=== PATIENT | female | born 1995 | race Caucasian/White ===

== ENCOUNTER 2019-08-31 09:24 | Emergency (ER) | payer SELFPAY ==
[~2019-08-31] VITALS: Ht 162.6 cm; Wt 90.9 kg
[~2019-08-31 09:24] MED LIST: NOCURR
[2019-08-31 09:55] VITALS: BP 125/72
[2019-08-31] MEDS ORDERED: DEXAMETHASONE 4 MG TABLET PO ONE (10:15)
[2019-08-31] MEDS ORDERED: ACETAMINOPHEN 325 MG TABLET PO ONE (10:15)
[2019-08-31] MEDS ORDERED: IBUPROFEN 800 MG TABLET PO ONE (10:15)
[2019-08-31] MEDS ORDERED: AZITHROMYCIN 250 MG TABLET PO ONE (10:15)
== END 2019-08-31 11:54 | disposition home or self-care (01) ==
LOC: EMS 09:25
DX: J02.9 Acute pharyngitis, unspecified (principal)
CPT/HCPCS: 99284; J8540

== ENCOUNTER 2019-09-14 | Emergency (ER) | payer SELFPAY ==
[~2019-09-14] VITALS: Ht 162.6 cm; Wt 104.5 kg
[2019-09-14 02:54] VITALS: BP 125/83
== END 2019-09-14 05:58 | disposition home or self-care (01) ==
LOC: EMS
DX: J20.8 Acute bronchitis due to other specified organisms (principal); Z88.1 Allergy status to other antibiotic agents

== ENCOUNTER 2020-12-13 19:13 | Emergency (ER) | payer MEDICAID ==
[~2020-12-13] VITALS: Ht 162.6 cm; Wt 95.5 kg
[2020-12-13 19:17] VITALS: BP 142/77
== END 2020-12-13 19:44 | disposition home or self-care (01) ==
LOC: EMS 19:20
DX: K02.9 Dental caries, unspecified (principal); Z88.0 Allergy status to penicillin
CPT/HCPCS: 99283

== ENCOUNTER 2024-08-02 16:40 | Emergency (ER) | payer MEDICAID, OTHER ==
[~2024-08-02] VITALS: Ht 162.6 cm; Wt 95.5 kg
[2024-08-02 16:45] VITALS: TEMP 98.3
[2024-08-02 17:09] LABS: APPEARANCE,URINE CLEAR (CLEAR); BILIRUBIN,URINE NEGATIVE (NEGATIVE); COLOR,URINE COLORLESS (YELLOW); GLUCOSE, URINE (UA) NEGATIVE (NEGATIVE); KETONES,URINE NEGATIVE (NEGATIVE); LEUKOCYTE ESTERASE ,URINE TRACE (NEGATIVE); NITRATE,URINE NEGATIVE (NEGATIVE); OCCULT BLOOD,URINE NEGATIVE (NEGATIVE); PROTEIN,URINE NEGATIVE (NEGATIVE); SPECIFIC GRAVITIY, URINE 1.004 (1.003-1.030); UROBILINOGEN,URINE <=1.0 mg/dL (<=1.0)
[2024-08-02 17:38] LABS: BACTERIA,URINE Few /HPF (None Seen); RBC,URINE 0-2 /HPF (0-2); SQUAMOUS EPITHELIAL CELL,UR Few /LPF (None Seen)
[2024-08-02 17:40] LABS: BASOPHILS % (AUTO) 0.4 % (0.0-2.0); EOSINOPHILS % (AUTO) 0.8 % (1.0-6.0); HEMATOCRIT 34.8 % (36-46); HEMOGLOBIN 10.4 g/dL (12.0-16.0); LYMPHOCYTES # (AUTO) 1.4 K/uL (1.0-4.8); MEAN CORPUSCULAR HEMOGLOBIN 19.9 pg (26.0-34.0); MEAN CORPUSCULAR HGB CONC 29.9 G/dL (31.0-37.0); MEAN CORPUSCULAR VOLUME 66 fL (80-100); MONOCYTES # (AUTO) 0.9 K/uL (0.1-1.0); MONOCYTES % (AUTO) 7.3 % (2.0-9.0); NEUTROPHILS # (AUTO) 9.3 K/uL (1.8-7.7); NEUTROPHILS % (AUTO) 79.5 % (40.0-70.0); PLATELET COUNT (AUTO) 561 K/uL (150-450); RED BLOOD CELL COUNT(AUTO) 5.24 MIL/uL (4.00-5.20); WHITE BLOOD COUNT (AUTO) 11.7 K/uL (4.5-11.0)
[2024-08-02 17:45] LABS: ANION GAP 9 mmol/L (8-16); CALCIUM, TOTAL 9.2 mg/dL (8.8-10.5); CARBON DIOXIDE 27 mmol/L (22-29); CHLORIDE 99 mmol/L (98-107); CREATININE 0.76 mg/dL (0.60-1.30); GLOMERULAR FILTR. RATE CALC > 60 mL/min (>60); GLUCOSE,RANDOM 97 mg/dL (70-110); POTASSIUM 4.2 mmol/L (3.5-5.1); RBC MORPHOLOGY COMMENT ABNORMAL RBC MORPH; SODIUM SERUM 135 mmol/L (136-145); UREA NITROGEN, BLOOD 8 mg/dL (7-18)
[2024-08-02 17:56] LABS: HCG,QUANTITATIVE 1 mIU/mL (0-6); LIPASE 25 U/L (16-77)
[2024-08-02] MEDS ORDERED: SODIUM CHLORIDE 0.9% 100 ML ONE (18:54)
[2024-08-02] MEDS ORDERED: IOHEXOL 350 MG/ML 100 ML VIAL ONE (18:55)
[2024-08-02] MEDS: KETOROLAC TROMETHAMINE 30 MG/ML VIAL IVP ONE (19:54)
[2024-08-02] MEDS ORDERED: ONDA-104 PO (21:49)
[2024-08-02 22:35] VITALS: BP 135/76; PULSE 76; RESP 16; O2SAT 98
== END 2024-08-02 22:50 | disposition home or self-care (01) ==
LOC: EMS 16:40
DX: K59.00 Constipation, unspecified (principal); Z88.0 Allergy status to penicillin
CPT/HCPCS: 99285; 74177; 96374; 80048; 81001; 83690; 84702; 85025; 36415; Q9967; J1885; J7050